=== PATIENT | female | born 1975 | race Caucasian/White ===

== ENCOUNTER → 2020-09-13 08:50 | Outpatient (CLI) | payer OTHER, SELFPAY ==
--- NOTE | 2020-09-12 12:51 | HP.PCM_ITS ---
- Problem List (1) DUB (dysfunctional uterine bleeding) Status: Acute History and Physical Date of Admission: 09/13/20 DATE OF SERVICE: September 03, 2020 ? PROBLEM:?menorrhagia, endocervical polyp ? DIAGNOSIS:?menorrhagia, endocervical polyp ? PAST SURGICAL HISTORY:? PAST SURGICAL HISTORY PAST SURGICAL HISTORY Procedure Laterality Date ? TOOTH EXTRACTION ? 1993 ? [place] teeth ? ? PAST MEDICAL HISTORY:? PAST MEDICAL HISTORY PAST MEDICAL HISTORY Diagnosis Date ? Depression ? ? Fibroids ? ? ? SUBJECTIVE:?Had one breast biopsy that returned as benign. Just had a second bi opsy at [place] last week, pending. ? SOCIAL HISTORY:? SOCIAL HISTORY Social History ? Tobacco Use ? Smoking status: Current Some Day Smoker ? Smokeless tobacco: Never Used Substance Use Topics ? Alcohol use: Yes ? ? Frequency: 2-4 times a month ? ? Drinks per session: 1 or 2 ? ? Binge frequency: Never ? Drug use: Never ? ? ALLERGIES ALLERGIES Allergen Reactions ? Amoxicillin ? Hives, Itching ? Augmentin [Amoxicil* Hives, Itching ? Clindamycin ? Hives, Itching ? Current Outpatient Medications on File Prior to Visit Medication Sig ? ibuprofen (MOTRIN) 800 mg tablet Take 1 tablet by mouth every 8 hours as needed. FOR PAIN. ? buPROPion XL (WELLBUTRIN XL) 150 mg 24 hr tablet Take 150 mg by mouth once daily. ? DULoxetine (CYMBALTA) 30 mg capsule Take 30 mg by mouth twice daily. ? cetirizine (ZYRTEC) 10 mg tablet Take 10 mg by mouth once daily. ? esomeprazole (NEXIUM) 20 mg capsule Take 20 mg by mouth once daily. ? LORazepam (ATIVAN) 0.5 mg Take 0.5 mg by mouth as needed. ? Lactobacillus acidophilus (PROBIOTIC ORAL) Take by mouth. ? No current facility-administered medications on file prior to visit.? ? Pelvic US: uterus normal size and contour. Endometrial thickness 16.7 mm. Appears to be a well-circumscribed polyp in the endocervix. The polyp measures 1.4 cm in greatest dimension. There is a small subserosal anterior fibroid measuring 3.5 cm in greatest dimension. Both ovaries appear normal No free fluid in the cul-de-sac Recommendations follow-up as clinically indicated. Consider hysteroscopic resection of the endocervical polyp ? ? OBJECTIVE: ? VITALS:? BP 120/84 ? Pulse 86 ? Resp 16 ? Ht 5' 5 (1.651 m) ? Wt 187 lb 9.6 oz (85.1 kg) ? LMP 08/14/2020 ? BMI 31.22 kg/m? ? HEENT: ?Normocephalic, atraumatic, Mucus membranes moist without lesions. ? NECK: ???Soft and Supple. ?No adenopathy , thyromegaly or bruits. ? SKIN: No lesions. ? CHEST: Clear to auscultation. ?No wheezes or rales. ?Good air exchange. ? HEART: Regular rate and rhythm ?No S3 or S4. ?No gallops or rubs. ? BACK: Nontender with no CVA tenderness. ? ABDOMEN: Soft, non-tender, non-distended, no masses, no hepatosplenomegaly. ? LOWER EXTREMITIES: There was no pitting edema, no palpable cords and no skin changes. ? ? ? ASSESSMENT:?menorrhagia ? PLAN: 1)?Discussed hysteroscopy, D&C, polypectomy, Mirena IUD placement. Discussed can only place IUD if breast biopsy is benign.?The rationale for the proposed surgery was discussed in addition to risks, benefits, and alternatives. ?General pre- and post-operative care was reviewed. ?Questions were answered. ?After discussion, the patient indicated a desire to proceed with the planned surgery. ? Carmencita Gibbs,?DO
[2020-09-13 07:57] LABS: Hemoglobin 13.4 g/dL (12.0-15.0); Mean Corp Hgb Conc 32.7 g/dL (32-36); Mean Corpuscular Hgb 29.5 pg (27.0-32.0); Mean Corpuscular Volume 90.3 fL (81-99); Mean Platelet Vol. 9.3 fl (6.2-12.0); Platelet Count 383 K/mm3 (150-450); RBC Distribution Width SD 42.9 fl (35.1-43.9); Red Blood Count 4.54 M/mm3 (4.2-5.4); White Blood Count 9.2 K/mm3 (4.4-11.0)
[2020-09-13 07:59] LABS: Internal QC Validated? YES +Cl - CLEAR BKGD; Pregnancy, Urine Negative Negative
[2020-09-13 08:00] VITALS: BP 150/107; PULSE 89; RESP 16; TEMP 36.3; O2SAT 96; BMI 30.5
== END ==
PROVIDERS: Anesthesiology; Referring Provider Obstetrics & Gynecology; Visit Provider Obstetrics & Gynecology
PROC: 0UB98ZZ Excision of Uterus, Via Natural or Artificial Opening Endoscopic (ICD-10-PCS; CPT 58558; principal; 2020-09-13 08:50)
DX: Z01.812 Encounter for preprocedural laboratory examination (principal)
CPT/HCPCS: 81025; 85027; 86850; 86900; 86901; 87635; C9803; J7120; J2405; U0003

== ENCOUNTER 2020-10-25 13:21 | Day surgery (SDC) | payer OTHER, SELFPAY ==
[2020-09-13 08:00] VITALS: BMI 30.5
--- NOTE | 2020-10-24 15:28 | HP.PCM_ITS ---
- Problem List (1) DUB (dysfunctional uterine bleeding) Status: Acute History and Physical Date of Admission: 10/25/20 DATE OF SERVICE: October 17, 2020 ? PROBLEM:?menorrhagia, endocervical polyp ? DIAGNOSIS:?menorrhagia, endocervical polyp ? PAST SURGICAL HISTORY:? PAST SURGICAL HISTORY PAST SURGICAL HISTORY Procedure Laterality Date ? BREAST BIOPSY ? ? ? TOOTH EXTRACTION ? 1994 ? [place] teeth ? PAST MEDICAL HISTORY:? PAST MEDICAL HISTORY PAST MEDICAL HISTORY Diagnosis Date ? Depression ? ? Fibroids ? ? Hypertension ? ? SUBJECTIVE:?H/o menorrhagia. Contraception- vasectomy. Normal pap and negative HPV 05/2019.?Has had bleeding daily for 2 weeks. The bleeding is spotting.? ? Pelvic US: Pelvic pain, Abnormal uterine bleeding Impression ========= uterus normal size and contour. Endometrial thickness 16.7 mm. Appears to be a well-circumscribed polyp in the endocervix. The polyp measures 1.4 cm in greatest dimension. There is a small subserosal anterior fibroid measuring 3.5 cm in greatest dimension. Both ovaries appear normal No free fluid in the cul-de-sac Recommendations follow-up as clinically indicated. Consider hysteroscopic resection of the endocervical polyp ? SOCIAL HISTORY:? SOCIAL HISTORY Social History ? Tobacco Use ? Smoking status: Current Some Day Smoker ? Smokeless tobacco: Never Used Substance Use Topics ? Alcohol use: Yes ? ? Frequency: 2-4 times a month ? ? Drinks per session: 1 or 2 ? ? Binge frequency: Never ? ? Comment: sometimes ? Drug use: Never ? Allergies: ?Bee Pollen ?Itching ?Amoxicillin ?Hives, Itching ?Augmentin [Amoxicil* ???Hives, Itching ?Clindamycin ?Hives, Itching ?Grass Pollen ?Other: See Comments ?Tussionex ?Itching ? Current Outpatient Medications on File Prior to Visit Medication Sig ? amLODIPine (NORVASC) 10 mg tablet Take 1 tablet by mouth once daily. ? montelukast (SINGULAIR) 10 mg tablet Take 1 tablet by mouth daily at bedtime. ? montelukast (SINGULAIR) 10 mg tablet Take 1 tablet by mouth daily at bedtime. ? buPROPion XL (WELLBUTRIN XL) 150 mg 24 hr tablet Take 1 tablet by mouth once daily. ? DULoxetine (CYMBALTA) 30 mg capsule Take 1 capsule by mouth twice daily. ? LORazepam (ATIVAN) 0.5 mg Take 1 tablet by mouth as needed for up to 90 days. ? Blood Pressure Test Kit-Large 1 Each twice daily. ? ibuprofen (MOTRIN) 800 mg tablet Take 1 tablet by mouth every 8 hours as needed. FOR PAIN. ? cetirizine (ZYRTEC) 10 mg tablet Take 10 mg by mouth once daily. ? esomeprazole (NEXIUM) 20 mg capsule Take 20 mg by mouth once daily. ? Lactobacillus acidophilus (PROBIOTIC ORAL) Take by mouth. No current facility-administered medications on file prior to visit.? ? OBJECTIVE: ? VITALS:? BP 120/84 ? Pulse 85 ? Resp 16 ? Ht 5' 5.5 (1.664 m) ? Wt 185 lb 3.2 oz (84 kg) ? LMP 10/04/2020 ? BMI 30.35 kg/m? ? HEENT: ?Normocephalic, atraumatic, Mucus membranes moist without lesions. ? NECK: ???Soft and Supple. ?No adenopathy , thyromegaly or bruits. ? SKIN: No lesions. ? CHEST: Clear to auscultation. ?No wheezes or rales. ?Good air exchange. ? HEART: Regular rate and rhythm ?No S3 or S4. ?No gallops or rubs. ? BACK: Nontender with no CVA tenderness. ? ABDOMEN: Soft, non-tender, non-distended, no masses, no hepatosplenomegaly. ? LOWER EXTREMITIES: There was no pitting edema, no palpable cords and no skin changes. ? ? ASSESSMENT:?menorrhagia, polyp ? PLAN: 1)?Discussed hysteroscopy, D&C, polypectomy, Mirena IUD placement.?The rationale for the proposed surgery was discussed in addition to risks, benefits, and alternatives. ?General pre- and post-operative care was reviewed. ?Questions were answered. ?After discussion, the patient indicated a desire to proceed with the planned surgery. ? Carmencita Gibbs,?DO
[2020-10-25] VITALS (14 sets, daily range): BP systolic 85–130; BP diastolic 53–97; PULSE 53–83; RESP 16–18; TEMP 36.1–36.7; O2SAT 96–100; BMI 30.7
--- NOTE | 2020-10-25 | EMB_PTH ---
PATIENT: VIVIANA MURRAY LOC: [facility] – [place] U#:[id number] AGE/SX: 45/F ROOM: RE10/25/[address]: Dr. Carmencita Gibbs DO : 1975 BED: DIS: 10/25/2020 SPEC #: [id number] RECD: 10/26/20 08:46 STATUS: MILEY RAMÓN #: [id number] LANE: 10/25/20 00:[address]: Carmencita Gibbs DEPT: SURGICAL PATHOLOGY RECD BY: Rio Rooney Tissues: Endometrium, NOS Procedures: Surgery Specimen Level IV HEADER OPERATION: Hysteroscopy, D & C Symphion, polypectomy, Mirena IUD placement PRE-OP DIAGNOSIS: Dysfunctional uterine bleeding TISSUE SUBMITTED: Endometrial curettings and polyp MICROSCOPIC DIAGNOSIS Endometrial curettings and polyp: Polypoid fragments of secretory endometrium. Scant fragments of benign squamous mucosa. AM:juarez 10/29/20 MICROSCOPIC DESCRIPTION Slides are reviewed. GROSS DESCRIPTION Received in fixative is one container labeled with the patient's name and designated endometrial curettings and polyp. The specimen consists of multiple irregular fragments of light robin soft tissue that in aggregate measure 5 x 3 x 0.2 cm. The specimen is totally submitted in two cassettes. / AM:juarez 10/26/20 TC:5 CPT: 18535
[2020-10-25 13:50] LABS: Internal QC Validated? YES +Cl - CLEAR BKGD; Pregnancy, Urine Negative Negative
[2020-10-25 13:51] LABS: Hematocrit 39.6 % (37-47); Mean Corp Hgb Conc 32.8 g/dL (32-36); Mean Corpuscular Hgb 30.2 pg (27.0-32.0); Mean Corpuscular Volume 91.9 fL (81-99); Mean Platelet Vol. 9.8 fl (6.2-12.0); Platelet Count 298 K/mm3 (150-450); RBC Distribution Width CV 13.6 % (11.6-14.6); RBC Distribution Width SD 46.3 fl (35.1-43.9); Red Blood Count 4.31 M/mm3 (4.2-5.4); White Blood Count 8.2 K/mm3 (4.4-11.0)
[2020-10-25] MEDS: Lactated Ringers 1,000 ML 100 ML IV ×3 (14:01→16:38)
--- NOTE | 2020-10-25 15:14 | PCM.DC.D&C ---
Discharge Diet: No Restrictions Discharge Activity: May Drive - 24 hours after surgery, May Shower, May Take a Tub Bath - After 1 week. Nothing in the vagina for 1 week May resume sexual activity in: 1 week Weight Bearing Status: Weight bearing as tolerated Lifting Restrictions: No restrictions Call your doctor if you observe: Fever of 101 or Higher, Inability to urinate, Inability to have a bowel movement, Using more than one pad per hour, Shortness of breath, Dizziness, Fainting spells, Swelling in the ankles, Chest pain, Increased palpitations (irregular heartbeat), Calf discomfort, Uncontrolled pain Allergies/Adverse Reactions: Allergies amoxicillin Allergy (Verified 10/25/20 13:38) Rash clavulanic acid [From Augmentin] Allergy (Verified 10/25/20 13:38) Rash clindamycin Allergy (Verified 10/25/20 13:38) Rash Medications to take at Discharge Bupropion HCl [Bupropion Xl] 150 mg PO DAILY 09/04/20 Cetirizine HCl [Zyrtec] 10 mg PO DAILY 09/04/20 Duloxetine HCl 30 mg PO BID 09/04/20 Esomeprazole Mag Trihydrate [Nexium] 20 mg PO DAILY 09/04/20 L.acidoph,Paracasei, B.lactis [Probiotic] 1 ea PO DAILY 09/04/20 Lorazepam [Ativan] 0.5 mg PO DAILY PRN PRN 09/04/20 Amlodipine [Norvasc] 10 mg PO DAILY 10/17/20 Orders to be completed after discharge: Type & Screen - PAT ONLY Time Frame: 10/25/20, Facility: [facility], Location: Laboratory Primary Care Physician: OLAF SHANE [Other] Test Results: Test results from this visit will be discussed in further detail at your follow-up appointment, if applicable. Please Follow Up With: Carmencita Gibbs DO When: 1-2 weeks
--- NOTE | 2020-10-25 15:15 | OP.PCM_ITS ---
Problem List (1) DUB (dysfunctional uterine bleeding) Status: Acute Report of Operation Date of Procedure: 10/25/20 Pre-Operative Diagnosis: DUB, uterine polyp Post-Operative Diagnosis: As above Surgery/Procedure Performed:: Hysteroscopy, polypectomy with Symphion, D&C, Mirena IUD placement Description of Surgical Findings:: A single endometrial polyp was noted. Once the polyp was removed, the cavity was otherwise noted to be normal-appearing. Bilateral tubal ostia were visualized. The uterus sounded to 8 cm. Type of Anesthesia:: MAC Special Medications: None Specimen's removed: Endometrial curettings and polyp Drains: None Estimated Blood Loss (mL): < 50 cc Fluids Replaced: 500 cc fluid deficit Description of Procedure: Start time: 1428 Stop time: 151 Indications: Menorrhagia with polyp noted on pelvic US Procedure: The patient was taken to the operating room where MAC anesthesia was found be adequate. She was prepped and draped in dorsal lithotomy position using yellowfin stirrups. A weighted speculum was placed to expose the cervix. A single-tooth tenaculum was placed on the anterior lip of the cervix. The cervix was serially dilated to accommodate the Symphion hysteroscope. The S ymphion hysteroscope was advanced to the fundus of the uterus. The uterine cavity was distended with normal saline. A single polyp was noted. Bilateral tubal ostia were visualized. Pictures were taken. The Symphion resecting device was then used to remove the polyp, as well as to sample the endometrium. The hysteroscope was then removed. A sharp curettage was performed for a moderate amount of tissue. The endometrial curettings and polyp were sent to pathology for review. The uterus was sounded to 8 cm. The Mirena IUD was placed in usual fashion. The strings were trimmed to 2 cm in length. Bleeding was hemostatic. All instruments were removed. A vaginal sweep was performed. Instrument sponge counts were correct. Patient was taken to the recovery room in stable condition. Grafts/Implants Used: Mirena IUD - Complications None - Admit VTE Documentation VTE Present on Admission: No VTE Mechan Device Prophylaxis: [facility] [place] VTE Pharm Prophylaxis ordered?: No
== END 2020-10-25 17:32 | disposition home or self-care (01) ==
LOC: SDC 13:21
PROVIDERS: Referring Provider Obstetrics & Gynecology; Visit Provider Obstetrics & Gynecology
PROC: 0UB98ZZ Excision of Uterus, Via Natural or Artificial Opening Endoscopic (ICD-10-PCS; CPT 58558; principal; 2020-10-25 14:45)
DX: N84.0 Polyp of corpus uteri (principal); N93.8 Other specified abnormal uterine and vaginal bleeding; I10 Essential (primary) hypertension; F17.200 Nicotine dependence, unspecified, uncomplicated; K21.9 Gastro-esophageal reflux disease without esophagitis; F41.9 Anxiety disorder, unspecified; F32.9 Major depressive disorder, single episode, unspecified; Z79.899 Other long term (current) drug therapy; Z20.828 Contact with and (suspected) exposure to other viral communicable diseases
CPT/HCPCS: 00952; 58300; 58558; 36415; 81025; 85027; 86850; 86900; 86901; 87426; 88305; C9803; J7120